=== PATIENT | male | born 1965 | race Caucasian/White ===

== ENCOUNTER 2021-03-10 10:11 | Emergency (ER) | payer MEDICARE, OTHER, SELFPAY ==
--- NOTE | ~2021-03-10 | XR_ITS ---
EXAMINATION: XR lumbar spine 2-3V DATE: 03/10/2021 11:04 INDICATION: Low back pain. TECHNIQUE: 3 views of lumbar spine were obtained. COMPARISON: None. FINDINGS: There is 4 degrees levocurvature of lumbar spine. Vertebral body heights are normal. There is mildly decreased disc height at L3-L4 and L4-L5 and moderately decreased disc height at L5-S1. The re are endplate osteophytes at all levels. There is multilevel mild facet joint osteoarthritis. IMPRESSION: 1. Moderate lumbar spondylosis. Reviewed, dictated and finalized at location A.
[2021-03-10 10:22] VITALS: BP 151/107; PULSE 84; RESP 20; TEMP 36.7; O2SAT 99
--- NOTE | 2021-03-10 10:40 | ED.GENADULT ---
HPI - General Adult General Chief complaint: Back Pain/Injury Stated complaint: lower back pain Time Seen by Provider: 03/10/21 10:16 Source: patient Mode of arrival: ambulatory Limitations: no limitations History of Present Illness HPI narrative: Patient presents for evaluation of low back pain. He indicates he has a history of chronic low back pain after experiencing lumbar spinal fracture in the several years ago. She underwent surgical repair has had ongoing [facility]. He has a developmentally delayed adult son and was attempting to assist him yesterday when he twisted his back. He has had worsening pain in low back since that time. He states his pain is constant, 6/10 in severity which increases to 8/10 with certain movements. He states that pain is a burning sensation and radiates into BLE. No saddle anesthesia. No bladder/bowel incontinence. He is currently on lyrica for pain. He states he recently tried an unknown opiate prescribed by pain management, but it was ineffective. He has an appt with his pain management provider on Thursday of this week. Related Data Allergies Allergy/AdvReac Type Severity Reaction Status Date / Time morphine Allergy Unknown Verified 03/10/21 10:26 Penicillins Allergy Unknown Verified 03/10/21 10:26 Review of Systems Review of Systems: Narrative: CONSTITUTIONAL: Denies fever, chills, or sweats. EYES: Denies visual changes, redness, or discharge. ENT: Denies rhinorrhea, congestion, sore throat, or otalgia. CARDIOVASCULAR: Denies chest pain, palpitations, or edema. RESPIRATORY: Denies cough or dyspnea. GASTROINTESTINAL: Denies abdominal pain, nausea, vomiting, or diarrhea. GENITOURINARY: Denies dysuria or hematuria. SKIN: Denies rash or itching. MUSCULOSKELETAL: Reports low back pain with radiation into BLE. Denies joint pain, or myalgia. NEUROLOGIC: Denies headache, numbness, dizziness, or weakness. PSYCHIATRIC: Denies anxiety or depression. [facility] Past Medical History Medical History (Updated 03/10/21 @ 11:13 by Arnie Gray, BRADLEY, ) Chronic low back pain Diabetes Hyperlipidemia Hypertension Surgical History Surgical History H/O inguinal hernia repair Family History Family History (Updated 03/10/21 @ 10:48 by Arnie Gray, [employer]INE [employer]PER[employer], ) Mother Tobacco abuse Social History Social History Gender identity (if verbalized by the patient): Male Exam Narrative: Exam Narrative: GENERAL: Well-appearing, well-nourished, and in no acute distress. Ambulatory with cane HEAD: Normocephalic, atraumatic. EYES: PERRLA and EOMI. ENT: Nares clear, no rhinorrhea or epistaxis. Mucous membranes moist. Oropharynx without tonsillar hypertrophy exudate or other lesions. Bilateral TMs pearly white nonbulging NECK: Supple. No adenopathy or masses. No carotid bruits or JVD CHEST: Clear to auscultation. No respiratory distress. No wheezes rales or rhonchi HEART: Regular rate and rhythm. No murmur heard. Normal peripheral pulses. ABDOMEN: Soft, nontender, nondistended, normal active bowel sounds. Tenderness in midline and paraspinous muscles of lumbar spine EXTREMITIES: Normal range of motion. No edema. SKIN: Warm, dry, no rash. ML linear surgical scar to lumbar spinal region ALLA without drainage or erythema NEURO: No focal deficits. Alert and oriented x3. PSYCH: Normal mood and affect. Course Course Emergency Course: This is a 55-year-old male with history of low back pain following a lumbar spinal fracture many years ago was undergoing surgical intervention in the past, presents with acute flare of chronic low back pain. He has no emergent symptoms reported. X-ray showed spondylosis. Given toradol in ER as he did not have a ride home. He will be placed on medrol dose german. Although he has a hx of DM, his BS at home hav
[2021-03-10] MEDS: KETOROLAC (*BKC) 60 MG/2 ML VIAL IM (10:41)
[2021-03-10 11:30] VITALS: BP 148/99; PULSE 80; RESP 20; O2SAT 100
== END 2021-03-10 11:30 | disposition home or self-care (01) ==
PROVIDERS: Emergency Provider Nurse Practitioner; PCP Family Medicine
DX: M47.26 Other spondylosis with radiculopathy, lumbar region (principal); E11.9 Type 2 diabetes mellitus without complications; E78.5 Hyperlipidemia, unspecified; I10 Essential (primary) hypertension
CPT/HCPCS: 72100; 96372; 99283; J1885